=== PATIENT | male | born 2000 | race Caucasian/White ===

== ENCOUNTER 2024-05-26 09:15 | Emergency (ER) | payer OTHER, SELFPAY ==
[2024-05-26 09:22] VITALS: BP 125/95; PULSE 94; RESP 16; TEMP 37.1; O2SAT 99
--- NOTE | 2024-05-26 09:37 | ED.URI ---
HPI - URI/Sore Throat General Chief Complaint: Upper Respiratory Infection Stated Complaint: chills/aches/throat Time Seen by Provider: 05/26/24 09:30 Source: patient and RN notes reviewed Mode of arrival: ambulatory Limitations: no limitations History of Present Illness HPI Narrative: Patient presents today complaining of body aches, chills, sweats, scratchy throat since yesterday. Denies fever, congestion rhinorrhea, cough, known sick contacts. He took a dose of ibuprofen last night without relief. Related Data Home Medications Medication Instructions Recorded Confirmed emtricitabine 200 mg-tenofovir 1 tablet PO DAILY 05/26/24 05/26/24 disoproxil fumarate 300 mg tablet lamotrigine 200 mg tablet 200 mg PO DAILY 05/26/24 05/26/24 Allergies Allergy/AdvReac Type Severity Reaction Status Date / Time No Known Allergies Allergy Verified 05/26/24 09:29 Review of Systems Review of Systems: CONSTITUTIONAL: + body aches, sweats, chills EYES: Denies visual changes, redness, or discharge. ENT: Denies rhinorrhea, congestion, sore throat, or otalgia.+ scratchy throat CARDIOVASCULAR: Denies chest pain, palpitations, or edema. RESPIRATORY: Denies cough or dyspnea. GASTROINTESTINAL: Denies abdominal pain, nausea, vomiting, or diarrhea. GENITOURINARY: Denies dysuria or hematuria. SKIN: Denies rash, itching, or wounds. MUSCULOSKELETAL: Denies back pain, joint pain, or myalgia. NEUROLOGIC: Denies headache, numbness, tingling, or weakness. PSYCH: Denies depression or anxiety. PMFSH Comments At time of signature, I have reviewed and agree with nursing past medical, surgical, social and family history unless otherwise noted. Please see nursing chart for further information. There is no relevant family history pertinent to the presenting complaint Exam Narrative: GENERAL: Well-appearing, well-nourished, and in no acute distress. HEAD: Normocephalic, atraumatic. EYES: EOMI. No redness or drainage. Conjunctivae normal. ENT: Mucous membranes pink and moist. Nares clear. No rhinorrhea. TMs normal bilaterally. Throat mildly erythematous posteriorly without edema or exudate. Uvula midline. NECK: Normal AROM. Supple. No lymphadenopathy. CHEST: No respiratory distress. Clear to auscultation. HEART: Regular rate and rhythm. No murmur appreciated. EXTREMITIES: Normal range of motion. No edema. SKIN: Warm, dry, no rash. Capillary refill normal. Normal skin turgor. NEURO: No focal deficits. Alert and oriented x3. Gait steady. PSYCH: Normal affect. No signs of depression or anxiety. Course Course Level of Care: Express Care Visit Vital Signs Vital signs: Vital Signs Temperature 98.7 F 05/26/24 09:22 Pulse Rate 94 05/26/24 09:22 Respiratory Rate 16 05/26/24 09:22 Blood Pressure 125/95 H 05/26/24 09:22 Pulse Oximetry 99 05/26/24 09:22 Oxygen Delivery Room Air 05/26/24 09:22 Temperature 98.7 F 05/26/24 09:22 Pulse Rate 94 05/26/24 09:22 Respiratory Rate 16 05/26/24 09:22 Blood Pressure 125/95 H 05/26/24 09:22 Pulse Oximetry 99 05/26/24 09:22 Oxygen Delivery Room Air 05/26/24 09:22 Reviewed MDM - URI/Sore Throat MDM Narrative Medical decision making narrative: Testing negative. Symptoms likely viral in etiology. Discussed [id number] medication use and duration of illness. No prescription medications indicated at this time. Anticipatory guidance given. ED precautions given Differential Diagnosis Differential diagnosis: Likely upper respiratory infection, viral infection, influenza, pharyngitis and other (COVID-19) Lab Data Attestation: I reviewed the patient's lab results. Labs: Lab Results 05/26/24 Range/Units 09:44 POC Influenza A Ag Negative (Negative) POC Influenza B Ag Negative (Negative) POC SARS CoV-2 Ag Negative (Negative) Critical Care Time Critical Care Time Critical Care Time: No Discharge Plan Discharge Clin
[2024-05-26 09:45] LABS: EDCOVIDSCREEN Negative (Negative)
[2024-05-26 09:46] LABS: EDINFLUASCREEN Negative (Negative); EDINFLUBSCREEN Negative (Negative)
== END 2024-05-26 09:54 | disposition home or self-care (01) ==
PROVIDERS: Emergency Provider Nurse Practitioner
DX: B34.9 Viral infection, unspecified (principal); Z79.899 Other long term (current) drug therapy; Z20.822 Contact with and (suspected) exposure to COVID-19
CPT/HCPCS: 87426; 87804; 99202; G0463